=== PATIENT | female | born 1985 | race Two or more races ===

== ENCOUNTER 2017-10-23 06:03 | Inpatient (IN) | payer OTHER ==
[~2017-10-23] VITALS: Ht 157.5 cm; Wt 62.1 kg
[2017-10-23] MEDS ORDERED: PRENATAL TABLE1 EAC1 PO (06:05)
== END 2017-10-25 18:32 | disposition home or self-care (01) | DRG 775 ==
LOC: LDR 06:03 → OB/GYN 10-24 14:19
PROC: 10E0XZZ Delivery of Products of Conception, External Approach (ICD-10-PCS; principal; 2017-10-23)
PROC: 3E033VJ Introduction of Other Hormone into Peripheral Vein, Percutaneous Approach (ICD-10-PCS; 2017-10-23)
PROC: 4A1HXCZ Monitoring of Products of Conception, Cardiac Rate, External Approach (ICD-10-PCS; 2017-10-23)
DX: O80 Encounter for full-term uncomplicated delivery (principal); Z3A.39 39 weeks gestation of pregnancy; Z37.0 Single live birth

== ENCOUNTER → 2020-09-23 | Emergency (ER) | payer OTHER ==
[~2020-09-23] MED LIST: PRENATAL TABLE1 EAC1 PO
== END | disposition left against medical advice (07) ==
LOC: ER
DX: Z53.20 Procedure and treatment not carried out because of patient's decision for unspecified reasons (principal)

== ENCOUNTER 2020-12-14 06:46 | Inpatient (IN) | payer OTHER ==
[~2020-12-14] VITALS: Ht 157.5 cm; Wt 67.1 kg
== END 2020-12-17 09:15 | disposition home or self-care (01) | DRG 785 ==
LOC: LDR 06:46 → OB/GYN 06:46 → O/R 18:36 → OB/GYN 21:35
PROVIDERS: ADMIT Obstetrics & Gynecology; ATTEND Obstetrics & Gynecology
PROC: 0UB70ZZ Excision of Bilateral Fallopian Tubes, Open Approach (ICD-10-PCS; 2020-12-14)
PROC: 4A1HXHZ Monitoring of Products of Conception, Cardiac Sound, External Approach (ICD-10-PCS; 2020-12-14)
PROC: 10D00Z1 Extraction of Products of Conception, Low, Open Approach (ICD-10-PCS; principal; 2020-12-14 16:00)
DX: O77.8 Labor and delivery complicated by other evidence of fetal stress (principal); O69.81X0 Labor and delivery complicated by cord around neck, without compression, not applicable or unspecified; O99.824 Streptococcus B carrier state complicating childbirth; Z30.2 Encounter for sterilization; Z37.0 Single live birth; Z3A.39 39 weeks gestation of pregnancy